=== PATIENT | female | born 1955 | race Caucasian/White ===

== ENCOUNTER → 2016-12-18 | Outpatient (CLI) | payer OTHER | LOC: FIMAGING 08:19 | PROVIDERS: ATTEND Orthopaedic Surgery | DX: Z01.818 Encounter for other preprocedural examination (principal); M17.11 Unilateral primary osteoarthritis, right knee; M25.461 Effusion, right knee; M71.21 Synovial cyst of popliteal space [Baker], right knee; R93.8 Abnormal findings on diagnostic imaging of other specified body structures ==

== ENCOUNTER → 2016-12-28 | Outpatient (CLI) | payer OTHER | LOC: FIMAGING 15:33 | PROVIDERS: ATTEND Family Medicine | DX: Z12.31 Encounter for screening mammogram for malignant neoplasm of breast (principal) | CPT/HCPCS: G0202 ==

== ENCOUNTER 2017-01-06 05:54 | Inpatient (IN) | payer OTHER ==
[2017-01-01 17:41] LABS: ANION GAP 12 mEq/L (8-16); CALCIUM 9.5 mg/dL (8.5-10.4); CARBON DIOXIDE 27 mEq/l (22-31); CHLORIDE 100 mEq/L (97-110); CREATININE 0.8 mg/dL (0.6-1.0); GLOMERULAR FILTRATION RATE > 60; GLUCOSE 94 mg/dL (70-100); POTASSIUM 3.5 mEq/L (3.5-5.2); SODIUM 139 mEq/L (134-144)
[~2017-01-06 05:54] MED LIST: LIDOCAINE 1% 2 ML INJ ONE
[2017-01-06] MEDS ORDERED: TRANEXAMIC ACID 3,000 MG in NS 50 ML IRR ONE (06:00)
[2017-01-06] MEDS ORDERED: ROPIVACAINE 0.2% 80 MG, EPINEPHrine 0.2 MG, KETOROLAC TROMETHAMINE 30 MG in BAG 0 ML IU ONE (06:00)
[2017-01-06] MEDS ORDERED: FAMOTIDINE 20 MG TAB PO ONE (06:06)
[2017-01-06] MEDS ORDERED: ceFAZolin 2 GM/DEXTROSE 100 ML IV ONE (06:06)
[2017-01-06] MEDS ORDERED: ACETAMINOPHEN 325 MG TAB PO ONE (06:06)
[2017-01-06] MEDS ORDERED: DEXAMETHASONE 4 MG/ML VIAL IVP ONE (06:06)
[2017-01-06] MEDS ORDERED: LIDOCAINE 1% 2 ML INJ ID PRN (06:57)
[2017-01-06] MEDS ORDERED: LR 1,000 ML IV ONE (06:57)
[2017-01-06] MEDS ORDERED: LIDOCAINE 2% 100 MG/5 ML SYR ONE (07:09)
[2017-01-06] MEDS ORDERED: fentaNYL 100 MCG/2 ML INJ ONE (07:09)
[2017-01-06] MEDS ORDERED: DEXAMETHASONE 4 MG/ML VIAL ONE ×2 (07:09)
[2017-01-06] MEDS ORDERED: MIDAZOLAM 2 MG/2 ML VIAL ONE (07:09)
[2017-01-06] MEDS ORDERED: PROPOFOL/EMULSION 500 MG/50 ML BOTTLE IV ONE ×2 (07:09→08:05)
--- NOTE | 2017-01-06 07:09 | PDHPUP ---
History & Physical Update H&P update statement: This history and physical update is based on an assessment of the patient which was completed after admission or registration (within 24 hours), but prior to the surgery/procedure. H&P update: H&P reviewed & patient examined, no change in patient's condition since H&P completed
[2017-01-06] MEDS ORDERED: TRANEXAMIC ACID 3,000 MG/50 ML BAG IRR ONE (07:10)
[2017-01-06] MEDS ORDERED: VANCOMYCIN 1 GM VIAL ONE (07:10)
--- NOTE | 2017-01-06 07:56 | PDANEPAE ---
ANE Past Medical History - Cardiovascular History Hx Hypertension: Yes Hx Arrhythmias: No Hx Chest Pain: No Hx Coronary Artery / Peripheral Vascular Disease: No Hx CHF / Valvular Disease: No Hx Palpitations: Yes Cardiovascular History Comment: INTERMITTENT PALPITATIONS - Pulmonary History Hx COPD: No Hx Asthma/Reactive Airway Disease: No Hx Recent Upper Respiratory Infection: No Hx Oxygen in Use at Home: Yes Hx Sleep Apnea: Yes Sleep Apnea Screening Result - Last Documented: Positive Pulmonary History Comment: EKATERINA USES C-PAP INSTRUCTED TO BRING DOS - Neurologic History Hx Cerebrovascular Accident: No Hx Seizures: No Hx Dementia: No - Endocrine History Hx Diabetes: No Endocrine History Comment: HYPOTHYROID - Renal History Hx Renal Disorders: Yes Renal History Comment: NEPHRITIS 1957 - Liver History Hx Hepatic Disorders: No - Neurological & Psychiatric Hx Hx Neurological and Psychiatric Disorders: Yes Neurological / Psychiatric History Comment: MOOD DISORDER - Congenital Disorder History Hx Congenital Disorders: No - Other Health History Other Health History: OSTEOARTHRITIS - Chronic Pain History Chronic Pain: Yes (RT KNEE) - Surgical History Prior Surgeries: RT KNEE SCOPE 04/2016. TONSILLECTOMY. REMVL ABD LIPOMA ANE Review of Systems Review of Systems: - Exercise capacity METS (RN): 3 METS ANE Patient History - Allergies Allergies/Adverse Reactions: TREES/BUSHES Allergy (Mild, Uncoded 02/25/11 13:07) NASAL CONGESTION - Home Medications Home Medications: Hydrochlorothiazide [HCTZ (*)] 25 mg PO DAILY 08/14/09 [Last Taken 01/05/17 09: 00] Levothyroxine [Synthroid 88 mcg (*)] 88 mcg PO DAILY06 08/14/09 [Last Taken 10/17 05:00] Lisinopril [Zestril 20 mg (*)] 20 mg PO BID 08/14/09 [Last Taken 01/05/17 21:00] Atorvastatin Calcium [Lipitor 20 mg (*)] 20 mg PO HS 04/11/10 [Last Taken 21:00] Potassium Cl [Klor-Con 20 meq (*)] 20 meq PO BID 04/11/10 [Last Taken 01/05/17 21:00] Felodipine [Felodipine ER] 10 mg PO DAILY 11/19/16 [Last Taken 01/06/17 05:00] clonazePAM [Klonopin (*)] 0.25 - 0.5 mg PO HS PRN 11/19/16 [Last Taken 01/05/17 21:00] Docusate Sodium [Colace 100 MG (*)] 100 mg PO DAILY 12/31/16 [Last Taken 05:00] Escitalopram Oxalate [Lexapro] 10 mg PO DAILY 12/31/16 [Last Taken 01/05/17 09: 00] Herbals/Supplements -Info Only 1 ea PO DAILY 12/31/16 [Last Taken 12/25/16] Lisdexamfetamine Dimesylate [Vyvanse] 30 mg PO DAILY PRN 12/31/16 [Last Taken 09:00] - NPO status NPO Since - Liquids (Date): 01/05/17 NPO Since - Liquids (Time): 22:30 NPO Since - Solids (Date): 01/05/17 NPO Since - Solids (Time): 20:30 - Smoking Hx Smoking Status: Never smoked ANE Labs/Vital Signs - Labs Result Diagrams: 01/01/17 16:35 - Vital Signs Blood Pressure: 100/59 Heart Rate: 60 Respiratory Rate: 16 O2 Sat (%): 93 Height: 154.94 cm Weight: 84.822 kg ANE Physical Exam - Airway Neck exam: increased neck circumference Mallampati Score: Class 3 Mouth exam: normal dental/mouth exam - Pulmonary Pulmonary: no respiratory distress - Cardiovascular Cardiovascular: regular rate and rhythym - ASA Status ASA Status: III ANE Anesthesia Plan Anesthesia Plan: spinal Regional Anesthesia: adductor canal FNB Urgent/Emergent Case: Praveena mitchell completed preop but documented later for safe timely pt care
[2017-01-06] MEDS ORDERED: BUPIVACAINE/EPI 0.5% 30 ML SDV ONE (08:06)
[2017-01-06] MEDS ORDERED: clonazePAM 0.5 MG TAB PO PRN (08:41)
[2017-01-06] MEDS ORDERED: Lisdexamfetamine Dimesylate [Vyvanse] 30 MG PO PRN (08:41)
--- NOTE | 2017-01-06 08:41 | POSTOPPROG ---
Post Op Note Date of Operation: 01/06/17 Surgeon: Mary Duncan Air Traffic Controller: eitan osorio Anesthesiologist: marina Anesthesia: IV Sedation, Local (Specify) (adductor canal), Spinal Pre-op Diagnosis: R knee OA Post-op Diagnosis: R knee OA Indication: failed conservative therapies Procedure: R TKA Inf/Abcess present in the surg proc area at time of surgery?: No EBL: Minimal
[2017-01-06] MEDS ORDERED: LACTULOSE 20 GM/30 ML UDCUP PO PRN (08:42)
[2017-01-06] MEDS ORDERED: TEMAZEPAM 15 MG CAP PO PRN (08:42)
[2017-01-06] MEDS ORDERED: ONDANSETRON DISINTEGRATING 4 MG TAB PO PRN (08:42)
[2017-01-06] MEDS ORDERED: ONDANSETRON 4 MG/2 ML VIAL IVP PRN ×2 (08:42→09:05)
[2017-01-06] MEDS ORDERED: BISACODYL 10 MG SUPP PR PRN (08:42)
[2017-01-06] MEDS ORDERED: DIPHENOXYLATE/ATROPINE LOMOTIL 1 TAB PO PRN (08:42)
[2017-01-06] MEDS ORDERED: diphenhydrAMINE 25 MG CAP PO PRN (08:42)
[2017-01-06] MEDS ORDERED: MAGNESIUM HYDROXIDE 30 ML UDCUP PO PRN (08:42)
[2017-01-06] MEDS ORDERED: PROMETHAZINE HCL 25 MG/ML INJ IVP PRN (08:42)
[2017-01-06] MEDS ORDERED: POLYETHYLENE GLYCOL 3350 17 GM PKT PO PRN (08:42)
[2017-01-06] MEDS ORDERED: PROMETHAZINE HCL 25 MG SUPPR PR PRN (08:42)
[2017-01-06] MEDS ORDERED: NON-FORMULARY NEW DRUG (Felodipine [Felodipine Er] 10 MG) PO SCH (09:00)
[2017-01-06] MEDS ORDERED: LR 1,000 ML IV SCH (09:00)
[2017-01-06] MEDS ORDERED: ALBUTEROL 3 ML DEYVIAL IH PRN (09:05)
[2017-01-06] MEDS ORDERED: NALOXONE HCL 0.4 MG/ML INJ IVP PRN (09:05)
[2017-01-06] MEDS ORDERED: fentaNYL 100 MCG/2 ML INJ IVP PRN (09:05)
[2017-01-06] MEDS ORDERED: LR 500 ML IV PRN (09:05)
--- NOTE | 2017-01-06 09:05 | POSTANESTH ---
Post Anesthetic Evaluation Cardiovascular Status: Normal, Stable Respiratory Status: Normal, Stable Level of Consciousness/Mental Status: Can Participate in Eval Pain Control: Adequate, Prn Tx Ordered Nausea/Vomiting Control: Adequate, Prn Tx Ordered Complications Possibly Related to Anesthesia: None Noted
[2017-01-06] MEDS: LISINOPRIL 20 MG TAB PO SCH ×2 (10:49→20:35)
[2017-01-06] MEDS: ESCITALOPRAM OXALATE 10 MG TAB PO SCH (10:50)
[2017-01-06] MEDS: POTASSIUM CL 20 MEQ TAB PO SCH ×2 (10:50→20:35)
[2017-01-06] MEDS: DOCUSATE SODIUM 100 MG CAP PO SCH (10:51)
[2017-01-06] MEDS: CYCLOBENZAPRINE 10 MG TAB PO PRN ×2 (10:51→20:35)
[2017-01-06] MEDS: oxyCODONE IR 5 MG TAB PO PRN ×7 (10:52→23:40)
[2017-01-06] MEDS: HYDROCHLOROTHIAZIDE 25 MG TAB PO SCH (11:18)
[2017-01-06] MEDS: ACETAMINOPHEN 325 MG TAB PO SCH ×3 (12:50→23:40)
[2017-01-06] MEDS: ceFAZolin 2 GM/DEXTROSE 100 ML IV SCH ×2 (15:19→23:40)
[2017-01-06] MEDS: ASPIRIN 325 MG TAB PO SCH (20:36)
[2017-01-06] MEDS: FAMOTIDINE 20 MG TAB PO SCH (20:36)
[2017-01-06] MEDS ORDERED: ATORVASTATIN CALCIUM 20 MG TAB PO SCH (21:00)
[2017-01-07] MEDS: oxyCODONE IR 5 MG TAB PO PRN ×3 (02:21→08:56)
[2017-01-07 04:44] LABS: HEMATOCRIT 33.7 % (38.0-47.0); HEMOGLOBIN 11.3 g/dL (12.6-16.3)
[2017-01-07] MEDS: ACETAMINOPHEN 325 MG TAB PO SCH ×2 (05:46→11:57)
[2017-01-07] MEDS: CYCLOBENZAPRINE 10 MG TAB PO PRN ×2 (05:47→11:56)
[2017-01-07] MEDS ORDERED: LEVOTHYROXINE 88 MCG TAB PO SCH (06:00)
--- NOTE | 2017-01-07 07:58 | SOAPPROG ---
SOAP Progress Note Assessment/Plan: Assessment: Patient is doing well POD 1 s/p R TKA Pain management: pain is well controlled on oral pain meds. VTE ppx: recommend aspirin daily for 3 weeks, cont DEBORAH and SCDs Anemia: level is expected initially postop. Asymptomatic. Continue to monitor D/c planning: d/c to home today pending release from PT Plan: 01/07/17 07:57 Objective: Vital Signs Temp Pulse Resp BP Pulse Ox 36.6 C 56 L 14 116/80 94 01/07/17 04:00 01/07/17 04:00 01/07/17 04:00 01/07/17 04:00 01/07/17 04:00 Laboratory Results 01/07/17 04:30 01/01/17 16:35 01/06/17 01/07/17 01/08/17 05:59 05:59 05:59 Intake Total 2391 Output Total 475 Balance 1916 ICD10 Worksheet Patient Problems: Problems Problem Status Onset Osteoarthritis of right knee Acute Osteoarthrosis of knee Acute - ICD10 Problem Qualifiers (1) Osteoarthrosis of knee Qualifiers: Osteoarthritis type: primary Laterality: right Qualified Code(s): M17.11 - Unilateral primary osteoarthritis, right knee (2) Osteoarthritis of right knee
--- NOTE | 2017-01-07 08:29 | GOP ---
[f rep st] OPERATIVE REPORT DATE OF OPERATION: 01/06/2017 SURGEON: Stephania Duncan MD QUALITY ASSURANCE INTERN: JOURDAN Wilcox ANESTHESIA: Spinal. PREOPERATIVE DIAGNOSIS: Right knee osteoarthritis. POSTOPERATIVE DIAGNOSIS: Right knee osteoarthritis. PROCEDURE PERFORMED: Right total knee arthroplasty. FINDINGS/PATHOLOGY: Severe medial and patellofemoral osteoarthritis. ESTIMATED BLOOD LOSS: 30 mL. INDICATIONS: This is a 61-year-old female with severe and progressive pain and deformity of the right knee unresponsive to conservative care. Risks and benefits of the surgical intervention were explained in detail. DESCRIPTION OF PROCEDURE: The patient was brought to the operative room and placed on the table in the supine position. Spinal anesthesia was induced without difficulty. A pneumatic tourniquet was applied about the right proximal thigh, and the leg was prepped and draped in a sterile fashion. The leg gifford was applied. After exsanguination by elevation the tourniquet was inflated to 250 mm of mercury. Incision was made anterior medial from the tibial tuberosity to a point 2 cm proximal to the superior pole of the patella. Medial parapatellar arthrotomy was carried out from the superior pole of the patella and posteriorly in line with the fibers of the Type 2 VMO. The medial collateral ligament was elevated and the infrapatellar fat pad was resected. The patella was everted and the articular surface was excised. A 32 mm patellar button was placed. The distal femoral guide hole was drilled and the 6 degree alignment rey was placed. An 8 mm distal femoral cut was made without difficulty. Attention was turned to the tibia and a standard 9 mm cut based on the lateral tibial condyle was performed. The tibial articular surface was excised without difficulty. Attention was turned back to the femur and a size 3 Triathlon femoral cutting block was positioned. Anterior, posterior, and chamfer cuts were made, followed by the intercondylar box cut. The knee was extended and the remnants of the medial and lateral meniscus were excised. The posterior capsule was injected with ropivacaine, epinephrine and Toradol. A size 3 MIS mini-keel tibial tray was positioned. Trial reduction was then carried out. There was excellent range of motion, alignment, and stability using the 9 mm polyethylene. All trials were then removed. The joint was thoroughly irrigated and carefully dried. Two packages of cement and 2 grams of vancomycin were mixed in the vacuum mixer and placed on the fixation surfaces of all surfaces of the components. The components were implanted and all excess cement was thoroughly removed. The permanent 9 mm polyethylene X3 was placed without difficulty. The tourniquet was deflated and all bleeders were coagulated. The wound was thoroughly irrigated and closed using interrupted sutures of 2-0 Vicryl for the joint capsule. The subcu was closed with 3-0 Vicryl and the skin with 4-0 Monocryl. Dermabond and Steri-Strips were applied followed by a compressive dressing. The patient was then moved from the operating room to the recovery room in good condition, having tolerated the procedure well. /[id number]/MODL MTDD
[2017-01-07] MEDS: HYDROCHLOROTHIAZIDE 25 MG TAB PO SCH (08:36)
[2017-01-07] MEDS: ESCITALOPRAM OXALATE 10 MG TAB PO SCH (08:36)
[2017-01-07] MEDS: ASPIRIN 325 MG TAB PO SCH (08:37)
[2017-01-07] MEDS: DOCUSATE SODIUM 100 MG CAP PO SCH (08:37)
[2017-01-07] MEDS: FAMOTIDINE 20 MG TAB PO SCH (08:38)
[2017-01-07] MEDS: POTASSIUM CL 20 MEQ TAB PO SCH (08:38)
--- NOTE | 2017-01-07 08:39 | GDS ---
[f rep st] DISCHARGE SUMMARY ADMISSION DIAGNOSIS: Right knee OA. DISCHARGE DIAGNOSIS: Right knee OA. PROCEDURE: Right total knee arthroplasty. VTE PROPHYLAXIS: Full strength aspirin x21 days. BRIEF DESCRIPTION OF HOSPITAL STAY: Patient was admitted for an elective joint arthroplasty. The pa tient tolerated the procedure well and has passed physical therapy. The patient was given appropriat e antibiotic prophylaxis and venous thromboembolism prophylaxis. The patient's pain was well control led on oral pain medication, patient was holding down food, and had urinated. Decision was made to d ischarge the patient. The patient was given post-operative prescriptions pre-operatively. PLAN: Please follow up with Dr. Duncan as scheduled on 01/29/2017. /[id number]/MODL
[2017-01-07] MEDS: LISINOPRIL 20 MG TAB PO SCH (08:41)
[2017-01-07 08:51] VITALS: BP 116/71; PULSE 58; RESP 18; TEMP 98.4; O2SAT 95
[2017-01-07] MEDS ORDERED: FELODIPINE 5 MG TAB.ER PO SCH (10:00)
--- NOTE | 2017-01-10 17:06 | ASDISCHSUM ---
Discharge Information Plan Status:Home with No Needs Medically Cleared to Leave: Discharge Date:01/07/2017 12:14 PM CM D/C Disposition:Home, Routine, Self-Care ADT D/C Disposition:Home, Routine, Self-Care Projected Discharge Date:01/07/2017 12:14 PM Transportation at D/C: Discharge Delay Reason: Follow-Up Date:01/07/2017 12:14 PM Discharge Slot: Final Diagnosis: Placement Information Patient Contact Information Contact Name:HERMINIOSANJUANITAEDUARDOISIS Relationship: Address:[address] Home Phone: City:[place] [facility] Phone: [facility]/Zip Code:[place] [address] Email: Financial Information Financial Class:HMO and PPO Plans Primary Plan Desc:[facility] Primary Plan Number:[id number] Secondary Plan Desc: Secondary Plan Number: Assessment Information Intervention Information
== END 2017-01-07 12:14 | disposition home or self-care (01) | DRG 470 ==
LOC: F3N 05:54
PROVIDERS: ADMIT Orthopaedic Surgery; ATTEND Orthopaedic Surgery
PROC: 0SRC0J9 Replacement of Right Knee Joint with Synthetic Substitute, Cemented, Open Approach (ICD-10-PCS; principal; 2017-01-06 07:15)
DX: M17.11 Unilateral primary osteoarthritis, right knee (principal); I10 Essential (primary) hypertension; G47.33 Obstructive sleep apnea (adult) (pediatric); E03.9 Hypothyroidism, unspecified; F32.9 Major depressive disorder, single episode, unspecified
CPT/HCPCS: 97116-GP; 97161-GP; 97165-GO; 97530-GP; C1713; J0171; J0690; J1100; J1885; J2001; J2250; J2704; J2795; J3010; J3370

== ENCOUNTER 2017-06-29 06:46 | Day surgery (SDC) | payer OTHER ==
[2017-06-29] MEDS ORDERED: LIDOCAINE 1% 2 ML INJ ONE (06:47)
[2017-06-29] MEDS ORDERED: LR 1,000 ML IV ONE (07:07)
[2017-06-29] MEDS ORDERED: LIDOCAINE 1% 2 ML INJ ID PRN (07:07)
[2017-06-29] MEDS ORDERED: LIDOCAINE 1% 300 MG/30 ML SDV ONE (08:04)
[2017-06-29] MEDS ORDERED: MIDAZOLAM 2 MG/2 ML VIAL IVP ONE (08:08)
--- NOTE | 2017-06-29 08:08 | PDANEPAE ---
ANE History of Present Illness dysfulnctioonal bleed ANE Past Medical History - Cardiovascular History Hx Hypertension: Yes Hx Arrhythmias: No Hx Chest Pain: No Hx Coronary Artery / Peripheral Vascular Disease: No Hx CHF / Valvular Disease: No Hx Palpitations: No Cardiovascular History Comment: INTERMITTENT PALPITATIONS - Pulmonary History Hx COPD: No Hx Asthma/Reactive Airway Disease: No Hx Recent Upper Respiratory Infection: No Hx Oxygen in Use at Home: No Hx Sleep Apnea: No Sleep Apnea Screening Result - Last Documented: Positive Pulmonary History Comment: EKATERINA USES C-PAP INSTRUCTED TO BRING DOS - Neurologic History Hx Cerebrovascular Accident: No Hx Seizures: No Hx Dementia: No - Endocrine History Hx Diabetes: No Endocrine History Comment: HYPOTHYROID - Renal History Hx Renal Disorders: No Renal History Comment: NEPHRITIS 1957 - Liver History Hx Hepatic Disorders: No - Neurological & Psychiatric Hx Hx Neurological and Psychiatric Disorders: Yes Neurological / Psychiatric History Comment: MOOD DISORDER - Cancer History Hx Cancer: No - Congenital Disorder History Hx Congenital Disorders: Yes Congenital History Comment: spondylosis - GI History Hx Gastrointestinal Disorders: No - Other Health History Other Health History: OSTEOARTHRITIS. irritated patch on neck - Chronic Pain History Chronic Pain: No - Surgical History Prior Surgeries: RT KNEE SCOPE 04/2016. TONSILLECTOMY. REMVL ABD LIPOMA. jan 2017 total knee ANE Review of Systems Review of Systems: - Exercise capacity METS (RN): 4 METS ANE Patient History - Allergies Allergies/Adverse Reactions: seasonal Allergy (Mild, Uncoded 06/15/17 12:10) Other-Enter Comments - Home Medications Home Medications: RX: Hydrochlorothiazide [HCTZ (*)] 08/14/09 [Last Taken 06/28/17] RX: Levothyroxine [Synthroid 88 mcg (*)] 08/14/09 [Last Taken 06/29/17] RX: Lisinopril [Zestril 20 mg (*)] 08/14/09 [Last Taken 06/29/17] RX: Atorvastatin Calcium [Lipitor 20 mg (*)] 04/11/10 [Last Taken 06/28/17] RX: Potassium Cl [Klor-Con 20 meq (*)] 04/11/10 [Last Taken 06/28/17] RX: Felodipine [Felodipine ER] 11/19/16 [Last Taken 06/29/17] RX: clonazePAM [Klonopin (*)] 11/19/16 [Last Taken 06/28/17] RX: Docusate Sodium [Colace 100 MG (*)] 12/31/16 [Last Taken 06/29/17] RX: Escitalopram Oxalate [Lexapro 10 MG] 12/31/16 [Last Taken 06/29/17] RX: Herbals/Supplements -Info Only 12/31/16 [Last Taken 06/15/17] RX: Acetaminophen [Tylenol 325mg (*)] 06/15/17 [Last Taken Unknown] - NPO status NPO Since - Liquids (Date): 06/28/17 NPO Since - Liquids (Time): 21:00 NPO Since - Solids (Date): 06/28/17 NPO Since - Solids (Time): 18:30 - Smoking Hx Smoking Status: Never smoked - Family Anes Hx Family Hx Anesthesia Complications: none ANE Labs/Vital Signs - Vital Signs Blood Pressure: 126/81 Heart Rate: 68 Respiratory Rate: 20 O2 Sat (%): 93 Height: 152.4 cm Weight: 87.09 kg ANE Physical Exam - Airway Neck exam: FROM Mallampati Score: Class 3 Mouth exam: normal dental/mouth exam - Pulmonary Pulmonary: no respiratory distress - Cardiovascular Cardiovascular: regular rate and rhythym - ASA Status ASA Status: II ANE Anesthesia Plan Anesthesia Plan: GA w LMA
[2017-06-29] MEDS ORDERED: fentaNYL 100 MCG/2 ML INJ ONE (08:16)
[2017-06-29] MEDS ORDERED: PHENYLEPHRINE HCL 100 MCG/ML SYR ONE (08:16)
[2017-06-29] MEDS ORDERED: PROPOFOL 200 MG/20 ML VIAL ONE ×2 (08:16)
--- NOTE | 2017-06-29 08:34 | PDHPUP ---
History & Physical Update H&P update statement: This history and physical update is based on an assessment of the patient which was completed after admission or registration (within 24 hours), but prior to the surgery/procedure.
[2017-06-29] MEDS ORDERED: PROMETHAZINE HCL 25 MG/ML INJ IVP PRN (08:56)
[2017-06-29] MEDS ORDERED: fentaNYL 100 MCG/2 ML INJ IVP PRN (08:56)
[2017-06-29] MEDS ORDERED: HYDROmorphONE/DILAUDID 1 MG/ML INJ IVP PRN (08:56)
[2017-06-29] MEDS ORDERED: NALOXONE HCL 0.4 MG/ML INJ IVP PRN (08:56)
[2017-06-29] MEDS ORDERED: ONDANSETRON 4 MG/2 ML VIAL IVP PRN (08:56)
--- NOTE | 2017-06-29 10:17 | POSTOPPROG ---
Post Op Note Date of Operation: 06/29/17 Surgeon: Sonja Park Anesthesiologist: Dr. Mcmullen Pre-op Diagnosis: PMB , thick endometrial stripe Post-op Diagnosis: endometrial mass Indication: PMB thick EMS Procedure: H/S resection of endometrial mass Findings: 1.5cm mass Inf/Abcess present in the surg proc area at time of surgery?: No EBL: Minimal Complications: none
[2017-06-29 10:36] VITALS: PULSE 63; RESP 16; TEMP 97.3
[2017-06-29 10:37] VITALS: BP 110/66
--- NOTE | 2017-06-29 10:38 | GOP ---
[f rep st] OPERATIVE REPORT DATE OF OPERATION: SURGEON: Sonja Park MD ANESTHESIA: General with LMA. ANESTHESIOLOGIST: Dr. Zaina Barajas MD. PREOPERATIVE DIAGNOSIS: Postmenopausal bleeding and thickened endometrial stripe. POSTOPERATIVE DIAGNOSIS: Endometrial mass, question polyp, fibroid, or malignancy. PROCEDURE PERFORMED: Hysteroscopic resection of endometrial mass/polyp versus fibroid versus malignancy. FINDINGS: An approximately 1-2 cm mass arising from the posterior wall. Normal tubal ostia. Normal-appearing cervix. ESTIMATED BLOOD LOSS: Minimal. INDICATIONS: Patient is a 62-year-old referred by Dr. Andrea Rodas for evaluation of thickened endometrial stripe and postmenopausal bleeding. She had an ultrasound done at [facility] that showed this and rather than doing an office biopsy, I elected to do a hysteroscopic resection of it to get a better biopsy sample. DESCRIPTION OF PROCEDURE: With informed consent signed, patient taken to the operating room and placed under general anesthesia, placed in the low dorsal lithotomy position, prepped and draped in the usual sterile fashion. Tenaculum placed on the anterior lip of the cervix. Cervix dilated up to 6 mm, and hysteroscope placed using normal saline as a filling medium. The [employer] Truclear Mini Ultra blade was placed into the hysteroscope, and resection of the mass done without complication. Once it was completely removed , the hysteroscope removed and patient placed in supine position, awakened in the operating room, taken to the recovery room, tolerated the procedure well. COMPLICATIONS: None. /[id number]/MODL MTDD
[2017-06-29 11:17] VITALS: O2SAT 90
== END 2017-06-29 10:45 | disposition home or self-care (01) ==
LOC: FSGY 06:46
PROVIDERS: ATTEND Obstetrics & Gynecology Gynecology
PROC: 0UB98ZX Excision of Uterus, Via Natural or Artificial Opening Endoscopic, Diagnostic (ICD-10-PCS; principal; 2017-06-29 08:15)
DX: C54.1 Malignant neoplasm of endometrium (principal); N95.0 Postmenopausal bleeding; I10 Essential (primary) hypertension; G47.33 Obstructive sleep apnea (adult) (pediatric); E03.9 Hypothyroidism, unspecified
CPT/HCPCS: 58558; C1782; J0171; J2250; J2370; J2704; J3010

== ENCOUNTER → 2018-01-28 | Outpatient (CLI) | payer OTHER | LOC: FIMAGING 07:43 | PROVIDERS: ATTEND Family Medicine | DX: Z12.31 Encounter for screening mammogram for malignant neoplasm of breast (principal) ==

== ENCOUNTER → 2018-04-25 | Outpatient (CLI) | payer OTHER | LOC: BMCIMAGING 09:08 | PROVIDERS: ATTEND Family Medicine | DX: Z13.820 Encounter for screening for osteoporosis (principal); Z78.0 Asymptomatic menopausal state; Z79.899 Other long term (current) drug therapy ==

== ENCOUNTER → 2018-06-22 | Outpatient (CLI) | payer OTHER | LOC: CIMAGING 16:04 | PROVIDERS: ATTEND Family Medicine | DX: M79.672 Pain in left foot (principal) | CPT/HCPCS: 73620-PO ==